=== PATIENT | female | born 1990 | race African-American/Black ===

== ENCOUNTER 2025-02-17 12:41 | Emergency (ER) | payer BC ==
[~2025-02-17] VITALS: Ht 175.3 cm; Wt 71.0 kg
[2025-02-17 12:44] VITALS: O2SAT 100
[2025-02-17 13:49] LABS: HEMATOCRIT. 37.3 % (36.0-48.0); HEMOGLOBIN. 12.2 g/dL (12.0-16.0); MEAN PLATELET VOLUME 8.6 fl (7.4-10.4); PLATELET 184 x1000/uL (130-400); RED BLOOD CELL COUNT 3.98 mill/uL (4.2-5.4); RED CELL DISTRIBUTION WIDTH 13.7 % (11.6-14.6)
[2025-02-17 13:57] LABS: CLARITY URINE CLEAR (CLEAR); COLOR URINE YELLOW (YELLOW); GLUCOSE URINE NEGATIVE (NEGATIVE); KETONES URINE TRACE (NEGATIVE); LEUKOCYTE ESTERASE URINE 2+ (NEGATIVE); NITRITE URINE NEGATIVE (NEGATIVE); OCCULT BLOOD URINE NEGATIVE (NEGATIVE); PH URINE 5.0 (4.5-8.0); PROTEIN URINE NEGATIVE (NEGATIVE); SPECIFIC GRAVITY URINE 1.023 (1.005-1.030); UROBILINOGEN URINE 0.2 E.U./dL (0.2-1.0)
[2025-02-17 14:26] LABS: BAND% 2.0 % (1.0-6.0); EOSINOPHILS % MANUAL 1.0 % (0.0-5.0); LYMPHOCYTES % MANUAL 9.0 % (20.0-60.0); MONOCYTES % MANUAL 6.0 % (2.0-8.0); NEUTROPHILS % MANUAL 82.0 % (45.0-75.0); PLATELET ESTIMATE NORMAL
[2025-02-17 14:34] LABS: CREATININE 0.8 mg/dL (0.6-1.0); UREA NITROGEN BLOOD 14 mg/dL (9-23)
[2025-02-17 14:36] LABS: ASPARTATE AMINOTRANSFERASE 15 IU/L (<34); BILIRUBIN DIRECT 0.3 mg/dL (<=3.0); BILIRUBIN TOTAL 1.1 mg/dL (0.1-1.0)
[2025-02-17 14:37] LABS: PROTEIN TOTAL 7.4 g/dL (6.0-8.3)
[2025-02-17] MEDS: ONDANSETRON 4MG ODT PO ONE (14:47)
[2025-02-17] MEDS: FAMOTIDINE 20MG TABLET PO ONE (14:47)
[2025-02-17 15:11] LABS: BACTERIA URINE 2+; RBC URINE 0-2 /hpf (0-2); SQUAMOUS EPITHELIAL CELL URINE 2+ /lpf (RARE/1+); WBC URINE 0-2 /hpf (0-2)
[2025-02-17] MEDS ORDERED: ONDA-239 PO (16:06)
[2025-02-17] MEDS ORDERED: FAMO-287 MT (16:07)
[2025-02-17 16:40] VITALS: BP 107/66; PULSE 87; RESP 16; TEMP 37; O2SAT 100
[2025-02-17 16:41] VITALS: TEMP 98.6
[2025-02-17] MEDS: ACETAMINOPHEN 325MG TABLET PO ONE (16:41)
[2025-02-17 16:46] LABS: HCG SCREEN NEGATIVE
== END 2025-02-17 16:43 | disposition home or self-care (01) ==
LOC: ER 12:41
DX: R51.9 Headache, unspecified (principal); R11.2 Nausea with vomiting, unspecified
CPT/HCPCS: 99284; 80076; 80048; 81003; 81025; 84703; 83690; 85025; 36415; Q0162